=== PATIENT | female | born 1930 | race Caucasian/White ===

== ENCOUNTER → 2017-09-06 | Outpatient (CLI) | payer MEDICARE, OTHER ==
--- NOTE | 2017-09-06 15:08 | Diagnostic Imaging Report ---
PROCEDURE:CT CHEST WITHOUT CONTRAST COMPARISON:None. INDICATIONS:UPPER RESPIRATORY INFECTION, NODULE TECHNIQUE: Axial CT images of the chest were obtained using high-resolution protocol. Coronal and sagittal reformations were made available for review, in addition to inspiration/expiration/prone axial imaging. Evaluation of vessels and mediastinum is suboptimal without IV contrast. RADIATION DOSE: Total DLP: 856.88 mGy*cm Estimated effective dose: (DLP x 0.014 x size factor) mSv FINDINGS: Lungs: Moderately advanced central lobular emphysema. Bilateral perihilar bronchial wall thickening. Bilateral nodular densities: Right lung: Right apex, series 2 image 13, 1.4 cm. Pleural based along the right major fissure, image 40, 0.9 cm. Right lower lobe, image 57, 0.6 cm, adjacent tree in bud opacity. Left lung: Left lower lobe, image 62, 1.0 cm Left lower lobe, image 68, 2.0 cm Pleural-based left lower lobe, image 74, 0.7 cm. There is extensive bronchiectasis in the lingula. Pleura:No pleural effusion, pleural calcification or pneumothorax. Heart \T\ Mediastinum:Left thyroid nodule. Scattered mediastinal nodes measuring up to 1.4 cm precarinal. These are discrete and likely reactive. Mild prominence of the ascending aorta measuring 3.6 cm. Main pulmonary artery measures 2.5 cm, non-dilated. Upper abdomen:Included portions of the unenhanced liver, spleen, pancreas, and adrenals and kidneys show no focal abnormalities. Musculoskeletal:Superficial surrounding soft tissue unremarkable. No acute or suspicious bony lesions. There are degenerative changes in the thoracic spine with kyphosis and calcified discs. CONCLUSION: 1. There is extensive emphysematous change in the lungs. Bilateral perihilar bronchial wall thickening compatible with reactive airway disorder. Extensive bronchiectasis in the lingula. 2. There are bilateral nodular densities, many of which appear to represent scarring, infection or atelectasis. A dominant 2.0 cm spiculated mass in the left lower lobe is suspicious for neoplasm, but may also be due to scarring. If there has been a previous exam elsewhere, comparison would be most helpful. Tissue sampling can be considered, although PET CT may be valuable to help determine if biopsy of this lesion is appropriate for this patient with multiple pulmonary findings. 3. Left thyroid nodule, likely represents goiter. This may be evaluated with thyroid ultrasound. Dictated by: Osorio Pinon M.D. on 09/06/2017 at 15:17 Electronically approved by: Osorio Pinon M.D. on 09/06/2017 at 15:17
== END ==
LOC: CT 13:22
PROVIDERS: ATTEND Internal Medicine Critical Care Medicine
DX: J06.9 Acute upper respiratory infection, unspecified (principal); J18.9 Pneumonia, unspecified organism; J47.9 Bronchiectasis, uncomplicated; R91.1 Solitary pulmonary nodule; M62.81 Muscle weakness (generalized); M06.9 Rheumatoid arthritis, unspecified; M02.861 Other reactive arthropathies, right knee
CPT/HCPCS: 71250

== ENCOUNTER → 2018-01-12 | Outpatient (CLI) | payer MEDICARE, OTHER ==
--- NOTE | 2018-01-12 11:28 | Diagnostic Imaging Report ---
PROCEDURE: CT CHEST WITHOUT CONTRAST CT scan of the chest WITHOUT intravenous contrast, using standard protocol. TECHNIQUE: The chest was scanned utilizing a multidetector helical scanner from the apex to the level of the adrenal glands. No IV contrast was administered. Coronal and sagittal multiplanar reformations were obtained. DLP: 279.99 mGy-cm COMPARISON: Chest CT 09/06/2017 INDICATIONS: ACUTE UPPER RESPIRATORY INFECTION FINDINGS: Lines/tubes: None. Lungs and Airways: Persistent emphysema and scattered areas of bronchiectasis and scarring, most prominent in the lingula which shows extensive bronchiectasis. Centrilobular and tree in bud nodules are noted throughout the lungs, changed in distribution from 09/06/2017. Bronchial wall thickening and appears increased from 09/06/2017. Scattered nodular opacities, including (on series 3): * Right lower lobe 1.3 cm nodular opacity (image 71) * Left lower lobe 0.8 cm nodular opacity (image 64) Resolution of the previous 2 cm spiculated nodule in the left lower lobe. Pleura: The pleural spaces are clear. Heart and mediastinum: Left thyroid lobe 1.6 cm cystic nodule. No significant mediastinal, hilar or axillary lymphadenopathy is seen. Prominent but subcentimeter a spinal lymph nodes, likely reactive. The heart and pericardium are within normal limits. Ascending aorta measures 3.9 cm, mildly ectatic. . Main pulmonary artery measures 2.7 cm, within normal limits. Aortic and coronary artery calcifications. Soft tissues: Normal. Abdomen: Calcified granuloma in the liver. Limited views of the upper abdomen show no abnormality within the visualized unenhanced spleen, pancreas, or kidneys. The adrenal glands are normal. Bones: Degenerative changes of the spine with kyphosis and calcified discs, worse at T7-T8. IMPRESSION: 1. Numerous tiny nodular opacities likely reflect atypical infection. 2. Increased bronchial wall thickening likely reflects superimposed bronchitis. 3. Resolution of the previous 2 cm left lower lobe nodular opacity. New scattered pulmonary nodular opacities measure up to 1.3 cm. These also may be infectious. Recommend follow up chest CT without contrast in 3 months to confirm resolution. 4. Emphysema with scattered areas of bronchiectasis and scarring. Dictated by: Gui Nelson M.D. on 01/12/2018 at 11:29 Electronically approved by: Gui Nelson M.D. on 01/12/2018 at 11:29
== END ==
LOC: CT 09:14
PROVIDERS: ATTEND Internal Medicine Critical Care Medicine
DX: J18.9 Pneumonia, unspecified organism (principal); J06.9 Acute upper respiratory infection, unspecified; J47.9 Bronchiectasis, uncomplicated; R91.1 Solitary pulmonary nodule; M06.9 Rheumatoid arthritis, unspecified; M02.861 Other reactive arthropathies, right knee; M62.81 Muscle weakness (generalized)
CPT/HCPCS: 71250

== ENCOUNTER → 2018-07-17 | Outpatient (CLI) | payer MEDICARE, OTHER ==
--- NOTE | 2018-07-17 16:50 | Diagnostic Imaging Report ---
ADDENDUM #1 Addendum: Prior CT from 01/12/2018 became available for comparison and addendum with comparison made per request of referring physician. IMPRESSION: Extensive bilateral bronchiectasis with peribronchial wall thickening without lobar consolidations. Findings may be chronic but cannot exclude superimposed acute bronchitis. STABLE SINCE 01/12/2018 Indeterminate 6 mm right lower lobe pulmonary nodule. STABLE SINCE 01/12/2018. RECOMMEND FOLLOW UP IN 12 MONTHS. Mildly enlarged mediastinal lymph nodes may be reactive. STABLE SINCE 01/12/2018 Signed by: Dr. Lucy Carrion M.D. on 07/24/2018 10:38 AM ORIGINAL REPORT EXAM: CT Chest WITHOUT contrast 07/17/2018 12:59 PM INDICATION: ^[id number] ^[id number] ^PNEUMONIA/ BRONCHIECTASIS COMPARISON: None TECHNIQUE: Chest was scanned utilizing a multidetector helical scanner from the lung apex through the level of the adrenal glands without administration of IV contrast. Absence of intravenous contrast decreases sensitivity for detection of lymphadenopathy and vascular pathology. Coronal and sagittal reformations were obtained. Routine protocol was performed. IV CONTRAST: None COMPLICATIONS: None RADIATION DOSE: Total DLP: 253.5 mGy*cm Estimated effective dose: (DLP x 0.015 x size factor) mSv CTDIvol has been reviewed. It is below the limits set by the Radiation Protocol Committee (RPC). FINDINGS: LINES/ TUBES: None. LUNGS AND AIRWAYS: Extensive bilateral reduction bronchiectasis with peribronchial wall thickening, worse in the left upper lobe. No lobar consolidations. 6 mm solitary pulmonary nodule in the right lower lobe on series 3, image 83. PLEURA: The pleural spaces are clear. Bilateral apical pleural scarring, right greater than left. HEART AND MEDIASTINUM: The thyroid gland is normal. Few mildly enlarged noncalcified lymph nodes with the largest in the right lower paratracheal region, measuring 1.3 cm. Biatrial enlargement. There is no pericardial effusion. Mild coronary artery calcifications. Borderline size of the ascending thoracic aorta (3.8 cm). Moderate calcifications of the aortic arch. UPPER ABDOMEN: Unremarkable. BONES: Mild degenerative changes of the thoracic spine. SOFT TISSUES: Unremarkable. IMPRESSION: Extensive bilateral bronchiectasis with peribronchial wall thickening without lobar consolidations. Findings may be chronic but cannot exclude superimposed acute bronchitis. Indeterminate 6 mm right lower lobe pulmonary nodule. Mildly enlarged mediastinal lymph nodes may be reactive. Recommend follow-up CT chest in 3 months to demonstrate stability of above findings. Signed by: Dr. Lucy Carrion M.D. on 07/17/2018 4:47 PM
== END ==
LOC: CT 12:47
PROVIDERS: ATTEND Internal Medicine Critical Care Medicine
DX: J18.9 Pneumonia, unspecified organism (principal); J47.9 Bronchiectasis, uncomplicated; R91.1 Solitary pulmonary nodule; J06.9 Acute upper respiratory infection, unspecified; M62.81 Muscle weakness (generalized); M06.9 Rheumatoid arthritis, unspecified
CPT/HCPCS: 71250

== ENCOUNTER → 2019-04-10 | Outpatient (CLI) | payer MEDICARE, OTHER ==
--- NOTE | 2019-04-10 14:15 | Diagnostic Imaging Report ---
EXAMINATION: CHEST 2 VIEWS INDICATION: Cough, upper respiratory infection COMPARISON: Chest CT of 07/17/2018 FINDINGS: LINES/TUBES:None LUNGS:There are extensive bilateral lower lobe predominant increased reticular opacities and tubular bronchiectasis. Approximately 3.9 cm nodular opacity overlying the right lower lung zone. PLEURA:No pleural effusion or pneumothorax. MEDIASTINUM:The cardiomediastinal silhouette appears unchanged in size and shape. Atherosclerotic calcifications of the thoracic aorta. BONES/SOFT TISSUES:No acute osseous injury. Diffuse osteopenia and degenerative changes of the visualized spine. ABDOMEN:No free air under the diaphragm. IMPRESSION: Approximately 3.9 cm subtle nodular opacity at the left lower lung zone. Recommend follow-up with chest CT for further evaluation. Extensive bilateral lower lobe predominant increased reticular opacities and tubular bronchiectasis, likely representing chronic lung disease. Signed by: Billie Nur MD on 04/10/2019 2:12 PM
== END ==
LOC: RAD 13:25
PROVIDERS: ATTEND Internal Medicine Critical Care Medicine
DX: J18.9 Pneumonia, unspecified organism (principal); J06.9 Acute upper respiratory infection, unspecified; J47.9 Bronchiectasis, uncomplicated; R91.1 Solitary pulmonary nodule; M62.81 Muscle weakness (generalized); M02.861 Other reactive arthropathies, right knee; M06.9 Rheumatoid arthritis, unspecified
CPT/HCPCS: 71046

== ENCOUNTER → 2019-07-19 | Outpatient (CLI) | payer MEDICARE, OTHER ==
--- NOTE | 2019-07-19 14:31 | Diagnostic Imaging Report ---
EXAM: CT Chest WITHOUT intravenous contrast 07/19/2019 10:21 AM INDICATION: Bronchitis COMPARISON: Chest CT of 07/17/2018, chest radiograph of 04/10/2019 TECHNIQUE: Chest was scanned utilizing a multidetector helical scanner from the lung apex through the level of the adrenal glands without administration of IV contrast. Coronal and sagittal reformations were obtained. Routine protocol was performed. IV CONTRAST: None RADIATION DOSE: Total DLP: 269.4 mGy*cm. Dose modulation, iterative reconstruction, and/or weight based adjustment of the mA/kV was utilized to reduce the radiation dose to as low as reasonably achievable. COMPLICATIONS: None FINDINGS: LINES/ TUBES: None. LUNGS AND AIRWAYS: The central airways are patent. Again seen and not significantly changed from 07/17/2018 is bronchial wall thickening and tubular bronchiectasis involving all lobes of the lungs, most prominent at the lingula. There are persistent scattered areas of mucus plugging in the subsegmental bronchi and peripheral lower lobe dependent tree-in-bud and centrilobular nodules. PLEURA: No pleural effusion or pneumothorax. HEART AND MEDIASTINUM: 1.5 cm hypodense left lower thyroid lobe nodule. No supraclavicular, mediastinal, or hilar lymphadenopathy. The heart is not enlarged. No pericardial effusion. Atherosclerotic calcifications involve the coronary arteries, thoracic aorta, and proximal great vessels. UPPER ABDOMEN: Limited images of the upper abdomen demonstrate no focal abnormality of the partially visualized liver, spleen, pancreas, adrenals, or upper most kidneys. BONES: No acute osseous injury. No suspicious lytic or blastic lesions. Mild degenerative changes of the visualized spine. SOFT TISSUES: Unremarkable. IMPRESSION: No significant interval change in bilateral bronchial wall thickening and tubular bronchiectasis with scattered areas of centrilobular and tree-in-bud nodules and subsegmental bronchial mucus plugging, most compatible with a chronic inflammatory process and chronic aspiration. Left thyroid 1.5 cm hypodense nodule. Recommend follow-up with dedicated ultrasound for further evaluation. Diffuse atherosclerotic calcifications including of the coronary arteries. Signed by: Billie Nur MD on 07/19/2019 2:28 PM
== END ==
LOC: CT 10:11
PROVIDERS: ATTEND Internal Medicine Critical Care Medicine
DX: J18.9 Pneumonia, unspecified organism (principal); J06.9 Acute upper respiratory infection, unspecified; J47.9 Bronchiectasis, uncomplicated; R91.1 Solitary pulmonary nodule; A31.2 Disseminated mycobacterium avium-intracellulare complex (DMAC); M62.81 Muscle weakness (generalized); M02.861 Other reactive arthropathies, right knee
CPT/HCPCS: 71250

== ENCOUNTER 2020-07-15 14:20 | Inpatient (IN) | payer MEDICARE, OTHER ==
[~2020-07-15] VITALS: Ht 165.1 cm; Wt 51.7 kg
[2020-07-15] MEDS ORDERED: ASPIRIN 81 MG CHEW TAB PO ONE (15:30)
[2020-07-15 15:59] LABS: BASOPHILS # (AUTO) 0.1 (0.0-0.1); BASOPHILS % 0.6 % (0.0-1.0); EOSINOPHILS % 0.2 % (0.0-6.0); HEMATOCRIT 42.8 % (34.2-44.1); HEMOGLOBIN 14.1 g/dL (12.0-16.0); LYMPHOCYTES # (AUTO) 2.1 (1.0-3.2); LYMPHOCYTES % 26.4 % (18.0-39.1); MEAN CORPUSCULAR HEMOGLOBIN 32.9 pg (28-32); MEAN CORPUSCULAR HGB CONC 32.9 g/dL (31-35); MEAN CORPUSCULAR VOLUME 99.8 fL (81-99); MONOCYTES # (AUTO) 0.9 (0.2-0.8); MONOCYTES % 10.8 % (4.4-11.3); NEUTROPHILS # (AUTO) 4.9 (2.1-6.9); NEUTROPHILS % 61.6 % (38.7-80.0); PLATELET COUNT 194 x10e3/uL (140-360); RED BLOOD COUNT 4.29 x10e6/uL (3.6-5.1); RED CELL DISTRIBUTION WIDTH 14.5 % (11.7-14.4)
[2020-07-15 16:21] LABS: ALANINE AMINOTRANSFERASE 35 IU/L (0-55); ALBUMIN 3.9 g/dL (3.5-5.0); ALBUMIN/GLOBULIN RATIO 0.9 (0.8-2.0); ALKALINE PHOSPHATASE 83 IU/L (40-150); ANION GAP 14.8 mmol/L (8-16); BLOOD UREA NITROGEN 14 mg/dL (7-26); BUN/CREATININE RATIO 19 (6-25); CALCIUM 10.3 mg/dL (8.4-10.2); CARBON DIOXIDE 30 mmol/L (22-29); CHLORIDE 98 mmol/L (98-107); CREATINE KINASE 47 IU/L (29-168); CREATININE, SERUM 0.75 mg/dL (0.57-1.11); EST GLOMERULAR FILTRATION RATE > 60 ML/MIN (60-); GLUCOSE 111 mg/dL (74-118); POTASSIUM 3.8 mmol/L (3.5-5.1); SODIUM 139 mmol/L (136-145)
[2020-07-15] MEDS ORDERED: ONDANSETRON HCL INJ 2MG/ML 2ML 2 MG/ML VIAL IV PRN (18:15)
[2020-07-15] MEDS ORDERED: FUROSEMIDE INJ 10 MG/ML 2 ML VIAL IV ONE ×2 (18:15→22:45)
[2020-07-15] MEDS ORDERED: HYDROXYZINE HCL 25 MG TAB PO STA (18:51)
[2020-07-15] MEDS: LABETALOL HCL 5 MG/ML 20ML VIAL IV STA ×3 (19:29→20:34)
[2020-07-15 21:15] VITALS: BP 156/106
[2020-07-15 21:30] VITALS: BP 156/106
[2020-07-15] MEDS ORDERED: GABAPENTIN400 MG PO (22:03)
[2020-07-15] MEDS ORDERED: AMLODIPINE BESYL5 MG PO (22:03)
[2020-07-15] MEDS ORDERED: MYAMBUTOL400 MG PO (22:03)
[2020-07-15] MEDS ORDERED: TYLENOL325 M2 PO (22:03)
[2020-07-15] MEDS ORDERED: CARVEDILOL6.25 MG PO (22:03)
[2020-07-15] MEDS ORDERED: NAC600 MG PO (22:03)
[2020-07-15] MEDS ORDERED: ALBUTEROL2.5 MG/3 M INH (22:03)
[2020-07-15] MEDS ORDERED: METOPROLOL TART50 MG PO (22:03)
[2020-07-15] MEDS ORDERED: RIFAMPIN300 MG PO (22:03)
[2020-07-15] MEDS ORDERED: TRAZODONE HCL50 MG PO (22:03)
[2020-07-15] MEDS ORDERED: LISINOPRIL-HCT1 EAC2 PO (22:03)
[2020-07-15] MEDS ORDERED: AZITHROMYCIN500 MG PO (22:03)
[2020-07-15] MEDS ORDERED: POTASSIUM CHLORIDE 20 MEQ TAB CR PO STA (22:38)
[2020-07-15] MEDS ORDERED: ALBUTEROL SULF 0.083% NEB SOLN 3 ML NEB INH PRN (22:45)
[2020-07-15] MEDS ORDERED: LABETALOL HCL 5 MG/ML 20ML VIAL IV PRN (23:00)
[2020-07-15] MEDS ORDERED: SODIUM CHLORIDE 0.9% 250ML 250 ML ONE (23:14)
[2020-07-15] MEDS: TRAZODONE HCL 50 MG TAB PO SCH (23:38)
[2020-07-15] MEDS: GABAPENTIN 400 MG CAP PO SCH (23:39)
[2020-07-15] MEDS: CEFEPIME 1GM/NS 0.9% 50 ML 50 ML IV SCH (23:39)
[2020-07-15] MEDS: METOPROLOL TARTRATE 50 MG TAB PO SCH (23:39)
[2020-07-15] MEDS: ENOXAPARIN SOD INJ 60 MG/0.6 ML SYR SC SCH (23:50)
[2020-07-15] MEDS: ACETAMINOPHEN 325 MG TAB PO PRN (23:55)
[2020-07-16] VITALS (7 sets, daily range): BP systolic 118–154; BP diastolic 78–101
[2020-07-16] MEDS: IPRATROPIUM BROMIDE 0.02% 2.5 ML NEB NEB SCH ×4 (00:05→19:30)
[2020-07-16] MEDS: AZITHROMYCIN 500MG/NS 250 ML 250 ML IV SCH (00:25)
[2020-07-16] MEDS ORDERED: VANCOMYCIN 750MG/NS 150ML IVPB 150 ML IV ONE (01:00)
[2020-07-16 06:02] LABS: BASOPHILS % 0.3 % (0.0-1.0); EOSINOPHILS % 0.1 % (0.0-6.0); HEMATOCRIT 36.5 % (34.2-44.1); LYMPHOCYTES # (AUTO) 2.1 (1.0-3.2); LYMPHOCYTES % 20.2 % (18.0-39.1); MEAN CORPUSCULAR HEMOGLOBIN 32.4 pg (28-32); MEAN CORPUSCULAR HGB CONC 32.9 g/dL (31-35); MEAN CORPUSCULAR VOLUME 98.6 fL (81-99); MONOCYTES # (AUTO) 1.3 (0.2-0.8); MONOCYTES % 12.3 % (4.4-11.3); NEUTROPHILS % 66.8 % (38.7-80.0); PLATELET COUNT 168 x10e3/uL (140-360); RED CELL DISTRIBUTION WIDTH 14.2 % (11.7-14.4)
[2020-07-16 06:17] LABS: ANION GAP 13.9 mmol/L (8-16); BLOOD UREA NITROGEN 13 mg/dL (7-26); BUN/CREATININE RATIO 18 (6-25); CALCIUM 8.9 mg/dL (8.4-10.2); CARBON DIOXIDE 34 mmol/L (22-29); CHLORIDE 97 mmol/L (98-107); CREATININE, SERUM 0.73 mg/dL (0.57-1.11); EST GLOMERULAR FILTRATION RATE > 60 ML/MIN (60-); GLUCOSE 89 mg/dL (74-118); POTASSIUM 3.9 mmol/L (3.5-5.1); SODIUM 141 mmol/L (136-145)
[2020-07-16 06:57] LABS: CHOL/HDL RATIO 4.1 (3.0-3.6); MAGNESIUM 1.6 MG/DL (1.3-2.1)
[2020-07-16 07:05] LABS: CREATINE KINASE MB 1.6 ng/mL (0-5.0); FREE THYROXINE INDEX 2.1091 (1.4-3.8); THYROID STIMULATING HORMONE 1.67 uIU/mL (0.350-4.940)
[2020-07-16] MEDS: METOPROLOL TARTRATE 50 MG TAB PO SCH ×2 (08:47→17:14)
[2020-07-16] MEDS: LISINOPRIL 10 MG TAB PO SCH (08:48)
[2020-07-16] MEDS: AMLODIPINE BESYLATE 5 MG TAB PO SCH (08:49)
[2020-07-16] MEDS: ENOXAPARIN SOD INJ 60 MG/0.6 ML SYR SC SCH (08:54)
[2020-07-16] MEDS: ENOXAPARIN SODIUM INJ 100 MG/ML SYR SC SCH ×2 (10:30→22:00)
[2020-07-16] MEDS: CEFEPIME 1GM/NS 0.9% 50 ML 50 ML IV SCH ×2 (11:44→23:45)
[2020-07-16] MEDS: ACETAMINOPHEN 325 MG TAB PO PRN (13:12)
[2020-07-16] MEDS: GABAPENTIN 400 MG CAP PO SCH (21:00)
[2020-07-16] MEDS ORDERED: ENOXAPARIN SOD INJ 60 MG/0.6 ML SYR SC SCH (21:00)
[2020-07-16] MEDS: TRAZODONE HCL 50 MG TAB PO SCH (21:00)
[2020-07-17] VITALS: BP 107/80
[2020-07-17] MEDS ORDERED: AZITHROMYCIN 250 MG TAB PO SCH
[2020-07-17] MEDS: AZITHROMYCIN 500MG/NS 250 ML 250 ML IV SCH (00:58)
[2020-07-17] MEDS: IPRATROPIUM BROMIDE 0.02% 2.5 ML NEB NEB SCH ×3 (01:00→13:00)
[2020-07-17 04:00] VITALS: BP 128/79
[2020-07-17 08:42] VITALS: BP 115/87
[2020-07-17 08:50] VITALS: BP 115/81
[2020-07-17] MEDS ORDERED: FUROSEMIDE 20 MG TAB PO SCH (09:00)
[2020-07-17] MEDS: LISINOPRIL 10 MG TAB PO SCH (09:55)
[2020-07-17] MEDS: AMLODIPINE BESYLATE 5 MG TAB PO SCH (09:55)
[2020-07-17] MEDS: METOPROLOL TARTRATE 50 MG TAB PO SCH (09:55)
[2020-07-17] MEDS: ACETAMINOPHEN 325 MG TAB PO PRN (10:14)
[2020-07-17] MEDS: CEFEPIME 1GM/NS 0.9% 50 ML 50 ML IV SCH (11:00)
[2020-07-17 11:58] VITALS: BP 110/67
[2020-07-17] MEDS ORDERED: ONDANSETRON HCL 4 MG ORAL DISINTEGRATING TAB PO PRN (12:15)
[2020-07-17] MEDS ORDERED: LISINOPRIL10 MG PO (12:25)
[2020-07-17] MEDS ORDERED: METOPROLOL TART50 MG PO (12:25)
[2020-07-17] MEDS ORDERED: FUROSEMIDE20 MG PO (12:25)
[2020-07-17] MEDS ORDERED: ELIQUIS2.5 MG PO (12:25)
[2020-07-17] MEDS ORDERED: POTASSIUM CHLORIDE 10MEQ EA PO ONE (13:30)
[2020-07-17] MEDS ORDERED: APIXAB 2.5 MG TABLET PO SCH (17:00)
== END 2020-07-17 15:41 | disposition home or self-care (01) | DRG 308 ==
LOC: ER 15:21 → ERHOLD 18:18 → MED/SURG2 21:21
PROVIDERS: ADMIT Internal Medicine Critical Care Medicine; ATTEND Internal Medicine Critical Care Medicine
DX: I48.91 Unspecified atrial fibrillation (principal); J15.9 Unspecified bacterial pneumonia; J96.01 Acute respiratory failure with hypoxia; A31.9 Mycobacterial infection, unspecified; J47.9 Bronchiectasis, uncomplicated; I10 Essential (primary) hypertension; I25.10 Atherosclerotic heart disease of native coronary artery without angina pectoris; M06.4 Inflammatory polyarthropathy; F32.9 Major depressive disorder, single episode, unspecified; F41.9 Anxiety disorder, unspecified; F43.0 Acute stress reaction; E78.5 Hyperlipidemia, unspecified; Z20.828 Contact with and (suspected) exposure to other viral communicable diseases
CPT/HCPCS: 36415; 71045; 71250; 80048; 80053; 80061; 82550; 82553; 83735; 83880; 84436; 84443; 84479; 84484; 85025; 87040; 93005; 93306; 94640; 94667; 94668; 99285; J0456; J0692; J1650; J1940; J3410; J7050; U0002

== ENCOUNTER → 2020-07-29 | Outpatient (CLI) | payer MEDICARE, OTHER ==
[~2020-07-29] MED LIST: ALBUTEROL2.5 MG/3 M INH; AMLODIPINE BESYL5 MG PO; AZITHROMYCIN500 MG PO; CARVEDILOL6.25 MG PO; ELIQUIS2.5 MG PO; FUROSEMIDE20 MG PO; GABAPENTIN400 MG PO; LISINOPRIL-HCT1 EAC2 PO; LISINOPRIL10 MG PO; METOPROLOL TART50 MG PO; MYAMBUTOL400 MG PO; NAC600 MG PO; RIFAMPIN300 MG PO; TRAZODONE HCL50 MG PO; TYLENOL325 M2 PO
--- NOTE | 2020-07-30 12:33 | Pulmonary Function Test ---
DATE OF STUDY: 07/29/2020 REFERRING PHYSICIAN: SPIROMETRY: Spirometry demonstrates evidence of severe restriction. FEV1 was 0.72 L or 44.2% predicted. FVC was 0.94 L or 46.4% predicted in setting of normal FEV1 over FVC ratio. After bronchodilator administration, there was no specifically significant change in spirometry. LUNG VOLUMES: FRC 71% predicted. The patient qualitatively with difficulty completing the lung volumes remain in good qualitative manner. DIFFUSION: Diffusion capacity was moderately decreased at 8.35 mL per mmHg per minute or 44.8% predicted. SIX MINUTE WALK TEST: The patient ambulated 22.9 m over 3 minutes before stopping. She used 2 L/minute supplement oxygen with assist device. Initial oxygen saturation 94%, but decreased to 83%, which she stopped. Heart rate was 93 beats per minute, increased to 115 beats per minute. SUMMARY: Severe restriction, moderate diffusion impairment. 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 Significantly decrease 6 minutes walk distance of 22.9 m. Clinical correlation is recommended. Johnathon Emmanuel MD [facility]/MODL /[id number]
== END ==
LOC: CT 14:31
PROVIDERS: ATTEND Internal Medicine Critical Care Medicine
DX: J18.9 Pneumonia, unspecified organism (principal); J47.9 Bronchiectasis, uncomplicated; R91.1 Solitary pulmonary nodule; M62.81 Muscle weakness (generalized); M06.9 Rheumatoid arthritis, unspecified
CPT/HCPCS: 94060; 94664; 94727; 94729

== ENCOUNTER 2020-08-19 22:15 | Inpatient (IN) | payer MEDICARE, OTHER ==
[~2020-08-19] VITALS: Ht 162.6 cm; Wt 56.0 kg
[2020-08-19] MEDS ORDERED: ASPIRIN 81 MG CHEW TAB PO ONE (22:30)
[2020-08-19] MEDS ORDERED: METHYLPREDNISOLONE SOD SUCC 125 MG/2ML VIAL ONE (22:44)
[2020-08-19] MEDS ORDERED: ALBUTEROL/IPRATROPIUM 3 ML NEB NEB ONE (22:45)
[2020-08-19] MEDS ORDERED: METHYLPREDNISOLONE SOD SUCC 125 MG/2ML VIAL IV ONE (22:45)
[2020-08-19 22:48] LABS: BASOPHILS # (AUTO) 0.1 (0.0-0.1); BASOPHILS % 0.4 % (0.0-1.0); EOSINOPHILS % 0.3 % (0.0-6.0); HEMATOCRIT 40.3 % (34.2-44.1); HEMOGLOBIN 13.2 g/dL (12.0-16.0); LYMPHOCYTES # (AUTO) 1.9 (1.0-3.2); LYMPHOCYTES % 14.9 % (18.0-39.1); MEAN CORPUSCULAR HEMOGLOBIN 33.5 pg (28-32); MEAN CORPUSCULAR HGB CONC 32.8 g/dL (31-35); MEAN CORPUSCULAR VOLUME 102.3 fL (81-99); MONOCYTES % 7.5 % (4.4-11.3); NEUTROPHILS # (AUTO) 9.8 (2.1-6.9); NEUTROPHILS % 76.6 % (38.7-80.0); PLATELET COUNT 163 x10e3/uL (140-360); RED BLOOD COUNT 3.94 x10e6/uL (3.6-5.1); RED CELL DISTRIBUTION WIDTH 14.3 % (11.7-14.4)
[2020-08-19 22:51] LABS: ALANINE AMINOTRANSFERASE 37 IU/L (0-55); ALBUMIN 3.5 g/dL (3.5-5.0); ALBUMIN/GLOBULIN RATIO 0.8 (0.8-2.0); ALKALINE PHOSPHATASE 105 IU/L (40-150); ANION GAP 12.5 mmol/L (8-16); BLOOD UREA NITROGEN 22 mg/dL (7-26); BUN/CREATININE RATIO 28 (6-25); CALCIUM 9.4 mg/dL (8.4-10.2); CARBON DIOXIDE 30 mmol/L (22-29); CHLORIDE 99 mmol/L (98-107); CREATINE KINASE 61 IU/L (29-168); CREATININE, SERUM 0.78 mg/dL (0.57-1.11); EST GLOMERULAR FILTRATION RATE > 60 ML/MIN (60-); GLUCOSE 252 mg/dL (74-118); POTASSIUM 4.5 mmol/L (3.5-5.1); SODIUM 137 mmol/L (136-145)
[2020-08-19 23:03] LABS: ABG PH 7.34 (7.35-7.45)
[2020-08-19 23:04] LABS: ABG HCO3 33 mmol/L (22-26); ABG PCO2 62 mmHg (35-45); ABG PO2 259 mmHg (80-105); ABG TCO2 35
[2020-08-19] MEDS ORDERED: DILTIAZEM HCL 5 MG/ML 5 ML VIAL IV STA (23:26)
[2020-08-19] MEDS ORDERED: DILTIAZEM HCL VIAL 5 ML ONE (23:38)
[2020-08-20] VITALS (9 sets, daily range): BP systolic 101–157; BP diastolic 72–98
[2020-08-20] MEDS ORDERED: ASPIRIN 81 MG CHEW TAB PO ONE
[2020-08-20] MEDS ORDERED: ONDANSETRON HCL INJ 2MG/ML 2ML 2 MG/ML VIAL IV PRN
[2020-08-20] MEDS ORDERED: FUROSEMIDE INJ 10 MG/ML 4 ML VIAL IV ONE (04:00)
[2020-08-20] MEDS ORDERED: MORPHINE SULFATE INJ 4 MG/ML INJ 1ML IV PRN ×2 (04:00)
[2020-08-20] MEDS ORDERED: GUAIFENESIN 200 MG/10 ML UDC PO PRN (04:00)
[2020-08-20] MEDS ORDERED: MAGNESIUM/ALUMINUM/SIMETHICONE 30 ML UDC PO PRN (04:00)
[2020-08-20] MEDS ORDERED: IPRATROPIUM BROMIDE 0.02% 2.5 ML NEB NEB PRN (04:00)
[2020-08-20] MEDS ORDERED: VANCOMYCIN 750MG/NS 150ML IVPB 150 ML IV ONE (04:15)
[2020-08-20] MEDS: CEFEPIME 1GM/NS 0.9% 50 ML 50 ML IV SCH ×2 (04:52→17:21)
[2020-08-20] MEDS ORDERED: VANCOMYCIN 1GM/NS 250 ML 250 ML ONE (05:32)
[2020-08-20 06:26] LABS: BASOPHILS % 0.1 % (0.0-1.0); HEMATOCRIT 38.3 % (34.2-44.1); HEMOGLOBIN 12.6 g/dL (12.0-16.0); LYMPHOCYTES % 10.8 % (18.0-39.1); MEAN CORPUSCULAR HEMOGLOBIN 33.6 pg (28-32); MEAN CORPUSCULAR HGB CONC 32.9 g/dL (31-35); MEAN CORPUSCULAR VOLUME 102.1 fL (81-99); MONOCYTES # (AUTO) 0.5 (0.2-0.8); MONOCYTES % 5.7 % (4.4-11.3); NEUTROPHILS # (AUTO) 7.7 (2.1-6.9); NEUTROPHILS % 83.1 % (38.7-80.0); PLATELET COUNT 150 x10e3/uL (140-360); RED BLOOD COUNT 3.75 x10e6/uL (3.6-5.1); RED CELL DISTRIBUTION WIDTH 13.9 % (11.7-14.4)
[2020-08-20 07:09] LABS: ALANINE AMINOTRANSFERASE 33 IU/L (0-55); ALBUMIN 3.3 g/dL (3.5-5.0); ALBUMIN/GLOBULIN RATIO 0.8 (0.8-2.0); ALKALINE PHOSPHATASE 82 IU/L (40-150); ANION GAP 11.9 mmol/L (8-16); BLOOD UREA NITROGEN 20 mg/dL (7-26); BUN/CREATININE RATIO 29 (6-25); CALCIUM 9.3 mg/dL (8.4-10.2); CARBON DIOXIDE 33 mmol/L (22-29); CHLORIDE 97 mmol/L (98-107); CREATININE, SERUM 0.68 mg/dL (0.57-1.11); EST GLOMERULAR FILTRATION RATE > 60 ML/MIN (60-); GLUCOSE 146 mg/dL (74-118); POTASSIUM 3.9 mmol/L (3.5-5.1); SODIUM 138 mmol/L (136-145)
[2020-08-20] MEDS: AMLODIPINE BESYLATE 5 MG TAB PO SCH (08:27)
[2020-08-20] MEDS: APIXAB 2.5 MG TABLET PO SCH ×2 (08:27→17:21)
[2020-08-20] MEDS: LISINOPRIL 10 MG TAB PO SCH (08:28)
[2020-08-20] MEDS ORDERED: METOPROLOL TARTRATE 50 MG TAB PO SCH ×2 (09:00→17:00)
[2020-08-20] MEDS ORDERED: CARVEDILOL 12.5 MG TAB PO SCH (09:00)
[2020-08-20] MEDS ORDERED: MORPHINE SULFATE 2 MG/ML SYR 1ML IV PRN (09:30)
[2020-08-20 11:31] LABS: CREATINE KINASE MB 3.4 ng/mL (0-5.0)
[2020-08-20] MEDS ORDERED: HALOPERIDOL LACTATE 5 MG/ML VIAL IV PRN (14:30)
[2020-08-20] MEDS ORDERED: DIGOXIN 0.25 MG TAB PO ONE (14:45)
[2020-08-20] MEDS: METOPROLOL TARTRATE 50 MG TAB PO SCH ×2 (14:58→21:07)
[2020-08-20] MEDS: FUROSEMIDE INJ 10 MG/ML 4 ML VIAL IV SCH ×2 (15:03→21:00)
[2020-08-20 16:43] LABS: CREATINE KINASE MB 2.7 ng/mL (0-5.0)
[2020-08-20] MEDS: TRAZODONE HCL 50 MG TAB PO SCH (21:07)
[2020-08-20] MEDS: GABAPENTIN 400 MG CAP PO SCH (21:07)
[2020-08-21] VITALS (8 sets, daily range): BP systolic 113–144; BP diastolic 57–94
[2020-08-21] MEDS: FUROSEMIDE INJ 10 MG/ML 4 ML VIAL IV SCH ×3 (03:00→16:09)
[2020-08-21] MEDS: METOPROLOL TARTRATE 50 MG TAB PO SCH ×4 (03:27→21:18)
[2020-08-21] MEDS: CEFEPIME 1GM/NS 0.9% 50 ML 50 ML IV SCH ×2 (04:22→16:09)
[2020-08-21 05:18] LABS: BASOPHILS % 0.2 % (0.0-1.0); HEMATOCRIT 37.1 % (34.2-44.1); HEMOGLOBIN 12.4 g/dL (12.0-16.0); LYMPHOCYTES # (AUTO) 1.5 (1.0-3.2); LYMPHOCYTES % 11.9 % (18.0-39.1); MEAN CORPUSCULAR HEMOGLOBIN 34.1 pg (28-32); MEAN CORPUSCULAR HGB CONC 33.4 g/dL (31-35); MEAN CORPUSCULAR VOLUME 101.9 fL (81-99); MONOCYTES # (AUTO) 1.9 (0.2-0.8); MONOCYTES % 15.5 % (4.4-11.3); PLATELET COUNT 146 x10e3/uL (140-360); RED BLOOD COUNT 3.64 x10e6/uL (3.6-5.1); RED CELL DISTRIBUTION WIDTH 14.1 % (11.7-14.4)
[2020-08-21 05:38] LABS: ANION GAP 9.3 mmol/L (8-16); BLOOD UREA NITROGEN 16 mg/dL (7-26); BUN/CREATININE RATIO 25 (6-25); CALCIUM 9.2 mg/dL (8.4-10.2); CARBON DIOXIDE 40 mmol/L (22-29); CHLORIDE 93 mmol/L (98-107); CREATININE, SERUM 0.65 mg/dL (0.57-1.11); EST GLOMERULAR FILTRATION RATE > 60 ML/MIN (60-); GLUCOSE 101 mg/dL (74-118); MAGNESIUM 1.7 MG/DL (1.3-2.1); PHOSPHORUS 2.6 MG/DL (2.3-4.7); POTASSIUM 3.3 mmol/L (3.5-5.1); SODIUM 139 mmol/L (136-145)
[2020-08-21] MEDS: LISINOPRIL 10 MG TAB PO SCH (08:00)
[2020-08-21] MEDS: APIXAB 2.5 MG TABLET PO SCH ×2 (08:00→16:09)
[2020-08-21] MEDS: AMLODIPINE BESYLATE 5 MG TAB PO SCH (08:00)
[2020-08-21] MEDS ORDERED: DIGOXIN INJ 0.25 MG/ML 2 ML AMP IV ONE (10:15)
[2020-08-21] MEDS ORDERED: POTASSIUM CHLORIDE 20 MEQ TAB CR PO ONE (10:50)
[2020-08-21] MEDS: ACETAMINOPHEN 325 MG TAB PO PRN (20:43)
[2020-08-21] MEDS: TRAZODONE HCL 50 MG TAB PO SCH (21:17)
[2020-08-21] MEDS: GABAPENTIN 400 MG CAP PO SCH (21:18)
[2020-08-22] VITALS (7 sets, daily range): BP systolic 108–139; BP diastolic 58–84
[2020-08-22] MEDS: METOPROLOL TARTRATE 50 MG TAB PO SCH ×3 (03:22→21:32)
[2020-08-22] MEDS: FUROSEMIDE INJ 10 MG/ML 4 ML VIAL IV SCH ×2 (03:22→16:20)
[2020-08-22] MEDS: CEFEPIME 1GM/NS 0.9% 50 ML 50 ML IV SCH ×2 (03:55→16:20)
[2020-08-22 05:16] LABS: ALANINE AMINOTRANSFERASE 23 IU/L (0-55); ALBUMIN 2.9 g/dL (3.5-5.0); ALBUMIN/GLOBULIN RATIO 0.6 (0.8-2.0); ALKALINE PHOSPHATASE 72 IU/L (40-150); ANION GAP 12.4 mmol/L (8-16); BLOOD UREA NITROGEN 20 mg/dL (7-26); BUN/CREATININE RATIO 31 (6-25); CALCIUM 9.7 mg/dL (8.4-10.2); CARBON DIOXIDE 38 mmol/L (22-29); CHLORIDE 91 mmol/L (98-107); CREATININE, SERUM 0.64 mg/dL (0.57-1.11); EST GLOMERULAR FILTRATION RATE > 60 ML/MIN (60-); GLUCOSE 104 mg/dL (74-118); POTASSIUM 3.4 mmol/L (3.5-5.1); SODIUM 138 mmol/L (136-145)
[2020-08-22] MEDS: APIXAB 2.5 MG TABLET PO SCH ×2 (08:44→16:20)
[2020-08-22] MEDS: AMLODIPINE BESYLATE 5 MG TAB PO SCH (08:44)
[2020-08-22] MEDS: LISINOPRIL 10 MG TAB PO SCH (08:44)
[2020-08-22] MEDS: DIGOXIN 0.125 MG TAB PO SCH (08:44)
[2020-08-22] MEDS ORDERED: POTASSIUM CHLORIDE 20 MEQ TAB CR PO NR (11:30)
[2020-08-22] MEDS: ACETAZOLAMIDE 250 MG TAB PO SCH (17:14)
[2020-08-22] MEDS: POTASSIUM CHLORIDE 20 MEQ TAB CR PO SCH (17:15)
[2020-08-22] MEDS ORDERED: ACETAZOLAMIDE SODIUM 500 MG/VIAL IV SCH (18:00)
[2020-08-22] MEDS: TRAZODONE HCL 50 MG TAB PO SCH (21:32)
[2020-08-22] MEDS: GABAPENTIN 400 MG CAP PO SCH (21:33)
[2020-08-23] VITALS (8 sets, daily range): BP systolic 80–115; BP diastolic 51–71
[2020-08-23] MEDS: ACETAZOLAMIDE 250 MG TAB PO SCH (01:32)
[2020-08-23] MEDS: POTASSIUM CHLORIDE 20 MEQ TAB CR PO SCH (01:33)
[2020-08-23] MEDS ORDERED: ACETAZOLAMIDE 250 MG TAB PO SCH (02:00)
[2020-08-23] MEDS ORDERED: POTASSIUM CHLORIDE 10MEQ EA PO ONE (02:00)
[2020-08-23] MEDS: FUROSEMIDE INJ 10 MG/ML 4 ML VIAL IV SCH (02:05)
[2020-08-23] MEDS: METOPROLOL TARTRATE 50 MG TAB PO SCH ×2 (02:07→08:23)
[2020-08-23] MEDS: CEFEPIME 1GM/NS 0.9% 50 ML 50 ML IV SCH ×2 (04:21→16:46)
[2020-08-23 05:32] LABS: BASOPHILS % 0.2 % (0.0-1.0); EOSINOPHILS % 0.3 % (0.0-6.0); HEMATOCRIT 38.7 % (34.2-44.1); HEMOGLOBIN 12.5 g/dL (12.0-16.0); LYMPHOCYTES # (AUTO) 1.3 (1.0-3.2); LYMPHOCYTES % 11.9 % (18.0-39.1); MEAN CORPUSCULAR HGB CONC 32.3 g/dL (31-35); MEAN CORPUSCULAR VOLUME 102.1 fL (81-99); MONOCYTES # (AUTO) 1.6 (0.2-0.8); MONOCYTES % 14.9 % (4.4-11.3); NEUTROPHILS # (AUTO) 7.8 (2.1-6.9); NEUTROPHILS % 72.3 % (38.7-80.0); PLATELET COUNT 168 x10e3/uL (140-360); RED BLOOD COUNT 3.79 x10e6/uL (3.6-5.1); RED CELL DISTRIBUTION WIDTH 14.2 % (11.7-14.4)
[2020-08-23 05:59] LABS: ALANINE AMINOTRANSFERASE 19 IU/L (0-55); ALBUMIN 2.4 g/dL (3.5-5.0); ALBUMIN/GLOBULIN RATIO 0.6 (0.8-2.0); ALKALINE PHOSPHATASE 90 IU/L (40-150); BLOOD UREA NITROGEN 24 mg/dL (7-26); BUN/CREATININE RATIO 39 (6-25); CARBON DIOXIDE 37 mmol/L (22-29); CHLORIDE 95 mmol/L (98-107); CREATININE, SERUM 0.62 mg/dL (0.57-1.11); EST GLOMERULAR FILTRATION RATE > 60 ML/MIN (60-); GLUCOSE 114 mg/dL (74-118); MAGNESIUM 1.9 MG/DL (1.3-2.1); PHOSPHORUS 2.7 MG/DL (2.3-4.7); SODIUM 138 mmol/L (136-145)
[2020-08-23] MEDS: APIXAB 2.5 MG TABLET PO SCH ×2 (08:22→17:26)
[2020-08-23] MEDS: DIGOXIN 0.125 MG TAB PO SCH (08:22)
[2020-08-23] MEDS: AMLODIPINE BESYLATE 5 MG TAB PO SCH (08:23)
[2020-08-23] MEDS: LISINOPRIL 10 MG TAB PO SCH (08:23)
[2020-08-23] MEDS ORDERED: METOPROLOL TARTRATE 50 MG TAB PO PRN (09:45)
[2020-08-23] MEDS: METOPROLOL SUCCINATE 50 MG TAB XL PO SCH ×2 (12:28→17:26)
[2020-08-23] MEDS ORDERED: FUROSEMIDE INJ 10 MG/ML 2 ML VIAL IV ONE (17:30)
[2020-08-23] MEDS: TRAZODONE HCL 50 MG TAB PO SCH (21:29)
[2020-08-23] MEDS: GABAPENTIN 400 MG CAP PO SCH (21:29)
[2020-08-24] VITALS (7 sets, daily range): BP systolic 96–107; BP diastolic 54–75
[2020-08-24] MEDS: CEFEPIME 1GM/NS 0.9% 50 ML 50 ML IV SCH ×2 (04:15→16:54)
[2020-08-24 05:25] LABS: ANION GAP 11.8 mmol/L (8-16); BLOOD UREA NITROGEN 27 mg/dL (7-26); BUN/CREATININE RATIO 40 (6-25); CALCIUM 9.1 mg/dL (8.4-10.2); CARBON DIOXIDE 34 mmol/L (22-29); CHLORIDE 95 mmol/L (98-107); CREATININE, SERUM 0.67 mg/dL (0.57-1.11); EST GLOMERULAR FILTRATION RATE > 60 ML/MIN (60-); GLUCOSE 105 mg/dL (74-118); POTASSIUM 3.8 mmol/L (3.5-5.1); SODIUM 137 mmol/L (136-145)
[2020-08-24] MEDS: FUROSEMIDE INJ 10 MG/ML 4 ML VIAL IV SCH (07:49)
[2020-08-24] MEDS: DIGOXIN 0.125 MG TAB PO SCH (07:49)
[2020-08-24] MEDS: APIXAB 2.5 MG TABLET PO SCH ×2 (07:49→16:54)
[2020-08-24] MEDS: LISINOPRIL 10 MG TAB PO SCH (07:50)
[2020-08-24] MEDS: AMLODIPINE BESYLATE 5 MG TAB PO SCH (07:50)
[2020-08-24] MEDS: METOPROLOL SUCCINATE 50 MG TAB XL PO SCH (07:50)
[2020-08-24] MEDS ORDERED: POTASSIUM CHLORIDE 20 MEQ TAB CR PO ONE (12:15)
[2020-08-24] MEDS ORDERED: METOPROLOL SUCC50 MG PO (12:32)
[2020-08-24] MEDS ORDERED: DIGOXIN125 MCG PO (12:32)
[2020-08-24] MEDS: TRAZODONE HCL 50 MG TAB PO SCH (21:55)
[2020-08-24] MEDS: GABAPENTIN 400 MG CAP PO SCH (21:56)
[2020-08-25] VITALS: BP 93/49
[2020-08-25 04:00] VITALS: BP 92/55
[2020-08-25] MEDS: CEFEPIME 1GM/NS 0.9% 50 ML 50 ML IV SCH ×2 (04:29→17:24)
[2020-08-25 06:22] LABS: ANION GAP 11.8 mmol/L (8-16); BLOOD UREA NITROGEN 36 mg/dL (7-26); BUN/CREATININE RATIO 49 (6-25); CARBON DIOXIDE 34 mmol/L (22-29); CHLORIDE 95 mmol/L (98-107); CREATININE, SERUM 0.74 mg/dL (0.57-1.11); EST GLOMERULAR FILTRATION RATE > 60 ML/MIN (60-); GLUCOSE 99 mg/dL (74-118); POTASSIUM 3.8 mmol/L (3.5-5.1); SODIUM 137 mmol/L (136-145)
[2020-08-25 07:45] VITALS: BP 113/97
[2020-08-25] MEDS: FUROSEMIDE INJ 10 MG/ML 4 ML VIAL IV SCH (08:28)
[2020-08-25] MEDS: DIGOXIN 0.125 MG TAB PO SCH (08:28)
[2020-08-25] MEDS: AMLODIPINE BESYLATE 5 MG TAB PO SCH (08:28)
[2020-08-25] MEDS: APIXAB 2.5 MG TABLET PO SCH ×2 (08:28→17:24)
[2020-08-25] MEDS: METOPROLOL SUCCINATE 50 MG TAB XL PO SCH (08:29)
[2020-08-25] MEDS: LISINOPRIL 10 MG TAB PO SCH (08:29)
[2020-08-25 11:41] VITALS: BP 93/67
[2020-08-25 20:00] VITALS: BP 101/55
[2020-08-25] MEDS ORDERED: POTASSIUM CHLORIDE 20 MEQ TAB CR PO STA (20:09)
[2020-08-25 20:29] VITALS: BP 101/55
[2020-08-25] MEDS: TRAZODONE HCL 50 MG TAB PO SCH (21:22)
[2020-08-25] MEDS: GABAPENTIN 400 MG CAP PO SCH (21:22)
[2020-08-26] VITALS (8 sets, daily range): BP systolic 99–134; BP diastolic 35–77
[2020-08-26] MEDS: CEFEPIME 1GM/NS 0.9% 50 ML 50 ML IV SCH ×2 (04:00→17:26)
[2020-08-26] MEDS: METOPROLOL SUCCINATE 50 MG TAB XL PO SCH (08:13)
[2020-08-26] MEDS: LISINOPRIL 10 MG TAB PO SCH (08:13)
[2020-08-26] MEDS: DIGOXIN 0.125 MG TAB PO SCH (08:13)
[2020-08-26] MEDS: AMLODIPINE BESYLATE 5 MG TAB PO SCH (08:13)
[2020-08-26] MEDS: APIXAB 2.5 MG TABLET PO SCH ×2 (08:13→17:26)
[2020-08-26] MEDS: FUROSEMIDE INJ 10 MG/ML 4 ML VIAL IV SCH (08:13)
[2020-08-26] MEDS: ACETAMINOPHEN 325 MG TAB PO PRN (21:10)
[2020-08-26] MEDS: GABAPENTIN 400 MG CAP PO SCH (21:10)
[2020-08-26] MEDS: TRAZODONE HCL 50 MG TAB PO SCH (21:10)
[2020-08-27 04:00] VITALS: BP 121/56
[2020-08-27] MEDS: CEFEPIME 1GM/NS 0.9% 50 ML 50 ML IV SCH ×2 (04:46→17:00)
[2020-08-27 08:07] VITALS: BP 128/83
[2020-08-27] MEDS: FUROSEMIDE INJ 10 MG/ML 4 ML VIAL IV SCH (08:20)
[2020-08-27] MEDS: LISINOPRIL 10 MG TAB PO SCH (08:21)
[2020-08-27] MEDS: AMLODIPINE BESYLATE 5 MG TAB PO SCH (08:21)
[2020-08-27] MEDS: METOPROLOL SUCCINATE 50 MG TAB XL PO SCH (08:21)
[2020-08-27] MEDS: DIGOXIN 0.125 MG TAB PO SCH (08:21)
[2020-08-27 08:25] VITALS: BP 128/83
[2020-08-27 12:00] VITALS: BP 104/60
[2020-08-27 16:13] VITALS: BP 100/66
== END 2020-08-27 18:25 | disposition home or self-care (01) | DRG 291 ==
LOC: ER 22:23 → ERHOLD 23:56 → IMCU 08-20 00:15 → MED/SURG 08-26 22:15
PROVIDERS: ADMIT Internal Medicine Critical Care Medicine; ATTEND Internal Medicine Critical Care Medicine
DX: I11.0 Hypertensive heart disease with heart failure (principal); J18.9 Pneumonia, unspecified organism; J96.01 Acute respiratory failure with hypoxia; A31.0 Pulmonary mycobacterial infection; I48.20 Chronic atrial fibrillation, unspecified; I48.91 Unspecified atrial fibrillation; I50.33 Acute on chronic diastolic (congestive) heart failure; E78.5 Hyperlipidemia, unspecified; F41.9 Anxiety disorder, unspecified; Z20.828 Contact with and (suspected) exposure to other viral communicable diseases; J47.9 Bronchiectasis, uncomplicated; Z99.81 Dependence on supplemental oxygen; Z79.01 Long term (current) use of anticoagulants; F32.9 Major depressive disorder, single episode, unspecified
CPT/HCPCS: 36415; 36600; 71045; 76604; 80048; 80053; 80162; 82550; 82553; 82805; 83735; 83880; 84100; 84484; 85025; 93005; 94640; 94660; 97139; 99284; J0692; J1160; J1630; J1940; J2930; J3370; U0002

== ENCOUNTER → 2021-02-24 | Day surgery (SDC) | payer MEDICARE, OTHER ==
[2021-02-19 13:32] LABS: BASOPHILS % 0.5 % (0.0-1.0); EOSINOPHILS # (AUTO) 0.1 (0.0-0.4); EOSINOPHILS % 1.1 % (0.0-6.0); HEMATOCRIT 38.1 % (34.2-44.1); HEMOGLOBIN 12.3 g/dL (12.0-16.0); LYMPHOCYTES # (AUTO) 3.1 (1.0-3.2); LYMPHOCYTES % 37.1 % (18.0-39.1); MEAN CORPUSCULAR HEMOGLOBIN 33.4 pg (28-32); MEAN CORPUSCULAR HGB CONC 32.3 g/dL (31-35); MEAN CORPUSCULAR VOLUME 103.5 fL (81-99); MONOCYTES # (AUTO) 0.9 (0.2-0.8); MONOCYTES % 10.4 % (4.4-11.3); NEUTROPHILS # (AUTO) 4.3 (2.1-6.9); NEUTROPHILS % 50.5 % (38.7-80.0); PLATELET COUNT 213 x10e3/uL (140-360); RED BLOOD COUNT 3.68 x10e6/uL (3.6-5.1)
[~2021-02-24] MED LIST changes: -ALBUTEROL2.5 MG/3 M INH; +ALBUTEROL2.5 MG/3 M NEB; +DIGOXIN125 MCG PO; +FENTANYL CITRATE/PF 100MCG/2 ML INJ ONE; +LIDOCAINE HCL 2% 30 ML TUBE ONE; +LIDOCAINE HCL 2% LOCAL INJ 5 ML SDV VIAL INJ ONE; +LIDOCAINE HCL 4% 50 ML BTL ONE; +METOPROLOL SUCC25 MG PO; +METOPROLOL SUCC50 MG PO; +MIDAZOLAM HCL 2 MG/2 ML VIAL ONE; +POTASSIUM CHLO20 ME1 PO; +POVIDONE IODINE 0.05% 0.05 % ML PO ONE; +PROPOFOL IV EMULSION 10 MG/ML 20 ML VIAL ONE; +REVATIO20 MG PO; +SEVOFLURANE INHAL SOLN 250 ML PEN BTL ONE; +SPIRIVA18 MCG INH
[2021-02-24 11:45] LABS: ALANINE AMINOTRANSFERASE 13 IU/L (0-55); ALBUMIN 3.8 g/dL (3.5-5.0); ALBUMIN/GLOBULIN RATIO 1.1 (0.8-2.0); ALKALINE PHOSPHATASE 70 IU/L (40-150); ANION GAP 12.1 mmol/L (8-16); BLOOD UREA NITROGEN 22 mg/dL (7-26); BUN/CREATININE RATIO 30 (6-25); CALCIUM 8.9 mg/dL (8.4-10.2); CARBON DIOXIDE 29 mmol/L (22-29); CHLORIDE 103 mmol/L (98-107); CREATININE, SERUM 0.74 mg/dL (0.57-1.11); EST GLOMERULAR FILTRATION RATE > 60 ML/MIN (60-); GLUCOSE 92 mg/dL (74-118); POTASSIUM 4.1 mmol/L (3.5-5.1); SODIUM 140 mmol/L (136-145)
[2021-02-24 11:54] LABS: INR 0.87; PROTHROMBIN TIME 12.4 seconds (11.9-14.5)
[2021-02-24 14:08] VITALS: BP 120/83
== END | disposition home or self-care (01) ==
LOC: ENDO 10:26
PROVIDERS: ATTEND Internal Medicine Critical Care Medicine
DX: A31.8 Other mycobacterial infections (principal); M62.81 Muscle weakness (generalized); J44.9 Chronic obstructive pulmonary disease, unspecified; J18.9 Pneumonia, unspecified organism; M06.9 Rheumatoid arthritis, unspecified; I27.21 Secondary pulmonary arterial hypertension; R91.1 Solitary pulmonary nodule; I10 Essential (primary) hypertension; E78.9 Disorder of lipoprotein metabolism, unspecified; F32.9 Major depressive disorder, single episode, unspecified; M13.80 Other specified arthritis, unspecified site; I48.91 Unspecified atrial fibrillation; Z01.810 Encounter for preprocedural cardiovascular examination; Z01.812 Encounter for preprocedural laboratory examination; Z99.81 Dependence on supplemental oxygen; Z87.891 Personal history of nicotine dependence
CPT/HCPCS: 31624; 36415 ×2; 80053; 85025; 85610; 85730; 87102; 87116; 87205; 87206 ×2; 87335; 93005; J2001; J2704; 31622